=== PATIENT | female | born 1985 | race Caucasian/White ===

== ENCOUNTER 2017-06-25 15:42 | Emergency (ER) | payer BC | END 2017-06-25 17:41 | disposition home or self-care (01) | LOC: ER 15:42 | DX: S05.02XA Injury of conjunctiva and corneal abrasion without foreign body, left eye, initial encounter (principal); F32.9 Major depressive disorder, single episode, unspecified; W22.8XXA Striking against or struck by other objects, initial encounter | CPT/HCPCS: 99283; A9270-GY ==